=== PATIENT | male | born 1995 | race Caucasian/White ===

== ENCOUNTER 2018-12-19 11:13 | Emergency (ER) | payer SELFPAY ==
[2018-12-19] MEDS ORDERED: NS 0.9% 1000 ML** 1,000 ML IV ONE (11:40)
--- NOTE | 2018-12-19 11:45 | ED ---
GI/ HPI - HPI Summary HPI Summary: A 23 y/o M presents to ED with c/o acute on chronic nausea ongoing for the past few months. Associated sx: low back pain, vomiting x3 last night. He's been taking Tylenol to no relief for the back pain. He states not going to the doctors a lot, but his PCP is Dr. Ureña in [place]. Pt denies any fever, chills, erythema of eyes, sore throat, CP, SOB, cough, abdominal pain, dysuria, hematuria, bowel changes, testicular pain, penis pain and discharge, recent weight loss, edema, rash, or dizziness. He is not on daily medications. No surgical history. Denies drugs and alcohol use. - History of Current Complaint Chief Complaint: EDNauseaVomitDiarrh Time Seen by Provider: 12/19/18 11:39 Stated Complaint: "SICK A LOT LATELY, NEED A DOCTORS NOTE" PER PT Hx Obtained From: Patient Onset/Duration: Started Hours Ago - vomiting, Started Weeks Ago - nausea, Still Present Severity: Moderate Current Severity: Moderate Pain Intensity: 5 - out of 10 Location of Pain: None Associated Signs and Symptoms: Positive: Back Pain, Nausea, Vomiting, Other: - neg: bowel changes, eye erythema, sore throat, SOB, testicular pain, edema, rash. Negative: Dizziness, Weight Loss, Discharge - penis, Diarrhea, Fever, Hematuria, Dysuria, Chills, Abdominal Pain, Cough, Chest Pain Additional Signs & Symptoms: Negative: Penile Discharge - Allergy/Home Medications Allergies/Adverse Reactions: Allergies Allergy/AdvReac Type Severity Reaction Status Date / Time No Known Allergies Allergy Verified 12/19/18 11:25 PMH/Surg Hx/FS Hx/Imm Hx Previously Healthy: Yes - "does not go to the doctor a lot." Sensory History: Denies: Hx Legally Blind, Hx Deafness Opthamlomology History: Denies: Hx Legally Blind EENT History: Denies: Hx Deafness Neurological History: Denies: Hx Dementia Infectious Disease History: No Infectious Disease History: Denies: Traveled Outside the [place] in Last 30 Days - Family History Known Family History: Positive: Other - [place]- grandparents - Social History Occupation: Employed Full-time Lives: Alone Alcohol Use: None Hx Substance Use: No Review of Systems Negative: Fever, Chills, Other - neg: recent weight loss Negative: Erythema Negative: Sore Throat Negative: Chest Pain Negative: Shortness Of Breath, Cough Positive: Vomiting, Nausea. Negative: Abdominal Pain, Other - neg: bowel changes Negative: dysuria, discharge - penis, hematuria, pain - penis, testicles Positive: Myalgia - low back andrés. Negative: Edema Negative: Rash Neurological: Other - neg: dizziness All Other Systems Reviewed And Are Negative: Yes Physical Exam - Summary Physical Exam Summary: Constitutional: Well-developed, Well-nourished, Alert. (-) Distressed Skin: Warm, Dry HENT: Normocephalic; Atraumatic Eyes: Conjunctiva normal Neck: Musculoskeletal ROM normal neck. (-) JVD, (-) Stridor, (-) Tracheal deviation Cardio: Rhythm regular, rate normal; Intact distal pulses; The pedal pulses are 2+ and symmetric. Radial pulses are 2+ and symmetric. (-) Murmur Pulmonary/Chest wall: Effort normal. (-) Respiratory distress Abd: Soft, (-) epigastric tenderness, (-) Distension, (-) Guarding, (-) Rebound Musculoskeletal: (-) Edema Lymph: (-) Cervical adenopathy Neuro: Alert, Oriented x3 Psych: Mood and affect Normal Triage Information Reviewed: Yes Vital Signs On Initial Exam: Initial Vitals Temp Pulse Resp BP Pulse Ox 99.2 F 95 16 131/88 99 12/19/18 11:23 12/19/18 11:23 12/19/18 11:23 12/19/18 11:23 12/19/18 11:23 Vital Signs Reviewed: Yes Diagnostics - Vital Signs Vital Signs Temp Pulse Resp BP Pulse Ox 12/19/18 11:23 99.2 F 95 16 131/88 99 - Laboratory Result Diagrams: 12/19/18 11:52 12/19/18 11:52 Lab Statement: Any lab studies that have been ordered have been reviewed, and results considered in the medical decision making process. GIGU Course/Dx - Course Course Of Treatment: A 23 y/o M presents c/o acute on chronic nausea for a few months, low back pain, and vomiting onset last night 3x. He denies any other sx. No daily meds, PMHx, or surgical hx. He is non-toxic appearing, his volume status appears normal. We do not suspect bowel obstruction. No suggestion of acute abd findings on physical exam or in lab work. Tolerating PO at time of discharge. Possible viral etiology. He does not have a local PCP, we will get a baseline set of labs for patient to follow up with. Will discharge patient home. - Diagnoses Provider Diagnoses: Vomiting Discharge - Sign-Out/Discharge Documenting (check all that apply): Patient Departure - DC Patient Received Moderate/Deep Sedation with Procedure: No - Discharge Plan Condition: Stable Disposition: HOME Prescriptions: Ondansetron ODT TAB* [Zofran 4 MG Odt TAB*] 4 mg PO Q8H PRN #9 tab.odt PRN Reason: Nausea/Vomiting Patient Education Materials: Ondansetron (By mouth), Acute Nausea and Vomiting (ED) Forms: *Work Release Referrals: [facility] [Outside] - 3 Days Additional Instructions: Return to the emergency department for changing or worsening symptoms. - Attestation Statements Document Initiated by Scribe: Yes Documenting Scribe: Malia Mcpherson Provider For Whom Scribe is Documenting (Include Credential): Dr. Cordell Quinones MD Scribe Attestation: Wilber, Malia Mcpherson, scribed for Dr. Cordell Quinones MD on 12/19/18 at 1319. Status of Scribe Document: Ready
[2018-12-19] MEDS ORDERED: Ondansetron ODT TAB* 4 MG PO ONE (11:52)
[2018-12-19 12:01] LABS: ABS Basophils 0.1 10^3/ul (0-0.2); ABS Eosinophils 0.2 10^3/ul (0-0.6); ABS Monocytes 0.7 10^3/ul (0-0.8); ABS Neutrophils 3.4 10^3/ul (1.5-7.7); ABS Nucleated RBC 0 10^3/ul; Eosinophil % 3.3 %; Hematocrit 49 % (36-46); Hemoglobin 16.7 g/dL (14.0-18.0); Lymphocyte % 40.6 %; Mean Corpuscular HGB Conc 34 g/dL (31-36); Mean Corpuscular Hemoglobin 31 pg (27-31); Mean Corpuscular Volume 90 fL (80-94); Mean Platelet Volume 8.2 fL (7.4-10.4); Nucleated Red Blood Cells % 0.1; Platelet Count 219 10^3/uL (150-450); Red Blood Count 5.38 10^6 /uL (4.18-5.48); Red Cell Distribution Width 13 % (10.5-15); White Blood Count 7.5 10^3/uL (3.5-10.8)
[2018-12-19 12:47] LABS: ALT 12 U/L (7-52); AST 20 U/L (13-39); Albumin 5.1 g/dL (3.2-5.2); Albumin/Globulin Ratio 1.8 (1-3); Alkaline Phosphatase 36 U/L (34-104); Anion Gap 9 mmol/L (2-11); BUN/Creatinine Ratio 13.5 (8-20); Blood Urea Nitrogen 13 mg/dL (6-24); C Reactive Protein < 1.00 mg/L (<8.01); CO2 Carbon Dioxide 27 mmol/L (22-32); Calcium 10.1 mg/dL (8.6-10.3); Chloride 103 mmol/L (101-111); EGFR African American 119.6 (>60); EGFR Non-African American 98.9 (>60); Globulin 2.9 g/dL (2-4); Glucose 85 mg/dL (70-100); Potassium 3.8 mmol/L (3.5-5.0); Sodium 139 mmol/L (135-145)
[2018-12-19 13:18] VITALS: BP 118/69
== END 2018-12-19 13:17 | disposition home or self-care (01) ==
LOC: ED 11:13
DX: R11.2 Nausea with vomiting, unspecified (principal); M54.5 Low back pain; R06.02 Shortness of breath; R60.1 Generalized edema
CPT/HCPCS: 36415; 80053; 83605; 83690; 85025; 86140; 99283; A9270-GY